=== PATIENT | female | born 1975 | race Caucasian/White ===

== ENCOUNTER → 2018-11-12 18:39 | Outpatient (CLI) | payer MEDICARE, MEDICAID ==
[2015-12-22 21:18] VITALS: BMI 24.2
[~2018-11-12 18:39] MED LIST: ATIVAN1 MG; ATIVAN1 MG PO; HYDROCODONE-APA1 TAB PO; IBUPROFEN600 MG PO; NORCO 10/325 TA1 TA1 PO; PERCOCET 10/3251 TA1 PO; RESTORIL15 MG PO; SOMA350 MG PO; VITAMIN D50000 UNIT PO; ZOLOFT100 MG PO
== END | disposition home or self-care (01) ==
LOC: D.MAMMO 14:30
PROVIDERS: ATTEND Family Medicine Adult Medicine
DX: N64.4 Mastodynia (principal)

== ENCOUNTER 2020-10-05 18:00 | Outpatient (CLI) | payer MEDICARE, MEDICAID ==
[2015-12-22 21:18] VITALS: BMI 24.2
== END 2020-10-05 23:59 | disposition home or self-care (01) ==
LOC: D.MAMMO 18:00
PROVIDERS: ATTEND Family Medicine Adult Medicine
DX: Z12.31 Encounter for screening mammogram for malignant neoplasm of breast (principal)